=== PATIENT | female | born 1990 | race Caucasian/White ===

== ENCOUNTER 2017-09-05 09:45 | Emergency (ER) | payer BC, OTHER ==
[2017-09-05 09:56] VITALS: TEMP 98.1
[2017-09-05] MEDS ORDERED: KETOROLAC 30 MG/ML 1 ML VIAL IVP STA (10:14)
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
[2017-09-05 10:48] LABS: Appearance,Urine Cloudy (Clear); Bacteria,Urine Rare /hpf; Bilirubin,Urine Negative (Negative); Blood,Urine Negative (Negative); Color,Urine Colorless; Glucose,Urine (UA) Negative (Negative); Ketones,Urine Negative (Negative); Leukocyte Esterase,Urine Small (Negative); Mucus,Urine Rare /hpf; Nitrite,Urine Negative (Negative); Protein,Urine Negative (Negative); RBC,Urine 1 /hpf (0-5); Specific Gravity,Urine 1.003 (1.001-1.035); Squamous Epithelial Cell,Urine 6 /hpf (0-4); Urobilinogen,Urine <2.0 mg/dL (<2.0); WBC,Urine 4 /hpf (0-5)
[2017-09-05 10:52] LABS: Basophils % (A) 0 %; Eosinophils # (A) 0.3 k/uL (0-0.7); Eosinophils % (A) 4 %; HCT 43.3 % (34.0-46.0); HGB 14.8 gm/dL (11.4-16.0); Lymphocytes # (A) 1.6 k/uL (1.0-4.8); Lymphocytes % (A) 20 %; MCH 29.7 pg (25.0-35.0); MCHC 34.1 g/dL (31.0-37.0); Mean Platelet Volume 6.1; Monocytes # (A) 0.4 k/uL (0-1.0); Monocytes % (A) 5 %; Neutrophils # (A) 5.6 k/uL (1.3-7.7); Neutrophils % (A) 69 %; Platelet Count 320 k/uL (150-450); RBC 4.97 m/uL (3.80-5.40)
[2017-09-05 10:55] LABS: ALT 30 U/L (9-52); AST 26 U/L (14-36); Albumin 4.4 g/dL (3.5-5.0); Alkaline Phosphatase 66 U/L (38-126); Anion Gap 12 mmol/L; Blood Urea Nitrogen 13 mg/dL (7-17); Calcium 9.7 mg/dL (8.4-10.2); Carbon Dioxide 26 mmol/L (22-30); Chloride 104 mmol/L (98-107); Glucose 82 mg/dL (74-99); Potassium 4.5 mmol/L (3.5-5.1); Sodium 142 mmol/L (137-145); Total Bilirubin 0.3 mg/dL (0.2-1.3); Total Protein 7.1 g/dL (6.3-8.2)
--- NOTE | 2017-09-05 11:13 | US ---
EXAMINATION TYPE: US transvaginal DATE OF EXAM: 09/05/2017 COMPARISON: None CLINICAL HISTORY: L pelvic pain, eval for cyst/torsion. Left pelvic pain x 2 days, 0 TECHNIQUE: Transvaginal ER exam. Date of LMP: 08/19/2017 EXAM MEASUREMENTS: Uterus: 6.8 x 2.6 x 3.8 cm Endometrial Stripe: 0.6 cm Right Ovary: 2.4 x 1.5 x 1.6 cm Left Ovary: 4.8 x 4.2 x 3.6 cm 1. Uterus: anteverted, wnl 2. Endometrium: wnl for patient's LMP 3. Right Ovary: wnl 4. Left Ovary: 3.0 x 3.9 x 3.2cm complex cystic area with internal debris and septations Spectral, color and waveform doppler imaging shows good arterial and venous flow within the left ov mariano, good arterial flow within the right ovary, unable to obtain venous flow within the right ovary. 5. Bilateral Adnexa: wnl 6. Posterior cul-de-sac: wnl IMPRESSION: 1. Probable hemorrhagic cyst left ovary. Follow-up study in 6 weeks recommended.
--- NOTE | 2017-09-05 11:40 | XR ---
EXAMINATION TYPE: XR pelvis AP view DATE OF EXAM: 09/05/2017 CLINICAL HISTORY: pain TECHNIQUE: Single view the pelvis is submitted. FINDINGS: No evidence for fracture, dislocation or bony lesion. Joint spaces are well-preserved. S I joints appear symmetric. IMPRESSION: 1. No acute fracture or dislocation seen. ICD 10 NO FRACTURE, INITIAL EVALUATION
--- NOTE | 2017-09-05 11:40 | XR ---
EXAMINATION TYPE: XR lumbar spine 2 or 3V DATE OF EXAM: 09/05/2017 CLINICAL HISTORY: pain TECHNIQUE: Three views of the lumbar spine are submitted. COMPARISON: None. FINDINGS: There are 5 lumbar type vertebral bodies identified. The lumbar spine shows satisfactory alignment w ithout evidence of acute fracture or dislocation. Vertebral body heights are within normal limits. Disc spaces are within normal limits. The overlying soft tissue appears unremarkable. IMPRESSION: No acute fracture or dislocation is seen in the lumbar spine. ICD 10 NO FRACTURE, INITIAL EVALUATION
[2017-09-05 12:06] VITALS: BP 116/68; PULSE 67; RESP 18
== END 2017-09-05 12:09 | disposition home or self-care (01) ==
LOC: EC 09:45
DX: N83.209 Unspecified ovarian cyst, unspecified side (principal); R20.0 Anesthesia of skin; M54.5 Low back pain
CPT/HCPCS: 36415; 80053; 85025; 81001; 81025; 72100; 72170; 93975; 76830; 99284; 96374; J1885

== ENCOUNTER → 2018-05-06 | Outpatient (CLI) | payer BC ==
--- NOTE | 2018-05-06 14:15 | US ---
EXAMINATION TYPE: US pelvic complete DATE OF EXAM: 05/06/2018 COMPARISON: NONE CLINICAL HISTORY: R10.2 Pelvic and perineal pain. Left side discomort, hx of ovarian cysts TECHNIQUE: Transabdominal (TA). Transabdominal sonographic images of the pelvis were acquired. Date of LMP: 05/03/2018, G0 EXAM MEASUREMENTS: Uterus: 6.9 x 3.8 x 3.4 cm Endometrial Stripe: 0.4 cm Right Ovary: 2.3 x 1.9 x 1.7 cm Left Ovary: 2.6 x 1.7 x 1.7 cm 1. Uterus: Anteverted wnl 2. Endometrium: wnl 3. Right Ovary: wnl 4. Left Ovary: wnl 5. Bilateral Adnexa: wnl 6. Posterior cul-de-sac: no free fluid IMPRESSION: 1. Normal pelvic ultrasound.
== END ==
LOC: RADUSWWP 07:31
PROVIDERS: ATTEND Family Medicine
DX: R10.2 Pelvic and perineal pain (principal)
CPT/HCPCS: 76856

== ENCOUNTER → 2020-11-29 | Outpatient (CLI) | payer BC ==
--- NOTE | 2020-11-29 08:56 | CT ---
EXAMINATION TYPE: CT sinus wo con DATE OF EXAM: 11/29/2020 COMPARISON: None HISTORY: Chronic sinusitis CT DLP: [address] of the paranasal sinuses was performed in the axial and coronal planes. Bone and soft tissue settings are submitted. The paranasal sinuses demonstrate normal aeration and development. Mucosal thickening left maxillary sinus. Remaining paranasal sinuses are well-aerated. No air-fluid l evel seen. Partial obstruction left ostiomeatal unit. Right ostiomeatal unit is patent. The nasal septum is midline. No bony destructive changes are seen within the field of view. IMPRESSION: Chronic left maxillary sinusitis. Partial obstruction left ostiomeatal unit.
== END | disposition home or self-care (01) ==
LOC: RADCTMAIN 08:18 → MERGE 08:20
PROVIDERS: ATTEND Otolaryngology
DX: J32.0 Chronic maxillary sinusitis (principal)
CPT/HCPCS: 70486

== ENCOUNTER 2021-02-08 09:49 | Day surgery (SDC) | payer BC ==
[2021-02-06 10:35] VITALS: BMI 25.6
[~2021-02-08 09:49] MED LIST: DEXAMETHASONE SOD PHOSPHATE 4 MG/ML 1 ML VIAL IV ONE; DEXAMETHASONE SOD PHOSPHATE 4 MG/ML 1 ML VIAL IV PRN; FAMOTIDINE 20 MG/2 ML VIAL IV PRN; HYDROmorphone 0.5 MG/0.5 ML SYRINGE IVP PRN; LACTATED RINGERS 1,000 ML IV SCH; LIDOCAINE 1% (10MG/ML) FOR IV START INTRADERMA PRN; MIDAZOLAM 2 MG/2 ML VIAL IV PRN; ONDANSETRON 4 MG/2 ML VIAL IVP PRN
[2021-02-08] MEDS: OXYMETAZOLINE 0.05% NASL SPRAY 1 SPRAY BOTTLE EA NOSTRIL PRN ×5 (10:25→10:45)
[2021-02-08] MEDS: ONDANSETRON 4 MG/2 ML VIAL IVP ONE ×2 (10:33→13:25)
[2021-02-08] MEDS ORDERED: LACTATED RINGERS 1,000 ML IV ONE (10:33)
[2021-02-08] MEDS ORDERED: HYDROmorphone (PF) 1 MG/ML ONE (11:51)
[2021-02-08] MEDS ORDERED: MIDAZOLAM 2 MG/2 ML VIAL ONE (11:51)
[2021-02-08] MEDS ORDERED: SUCCINYLCHOLINE CHLORIDE 100 MG/5 ML SYR IV ONE (11:51)
[2021-02-08] MEDS ORDERED: PROPOFOL 10 MG/ML 20 ML VIAL IV ONE (11:51)
[2021-02-08] MEDS ORDERED: LIDOCAINE 1% INJ 10MG/ML (20 ML MDV) ONE (11:51)
[2021-02-08] MEDS ORDERED: fentaNYL (PF) 50 MCG/ML 2 ML AMP ONE (11:51)
[2021-02-08] MEDS ORDERED: LIDOCAINE 1%-EPI 1:100,000 20 ML VIAL SQ ONE (12:24)
[2021-02-08] MEDS ORDERED: BACITRACIN ZINC 500 UNIT/GM OINT 28.4 GM TUBE TOPICAL ONE (12:32)
--- NOTE | 2021-02-08 13:00 | P.OP ---
Date of Procedure: 02/08/21 Preoperative Diagnosis: Deviated nasal septum Inferior turbinate hypertrophy Chronic sinusitis Postoperative Diagnosis: Same Procedure(s) Performed: Septoplasty Outfracture and submucous resection inferior turbinates Bilateral endoscopic sinus surgery including bilateral maxillary antrostomy and right martin bullectomy Anesthesia: SEFERINO Surgeon: Rory Green Estimated Blood Loss (ml): 5 Pathology: other (Nasal septal bone and cartilage and sinus contents) Condition: stable Disposition: PACU Indications for Procedure: 31-year-old white female with a long history of chronic nasal airway obstruction, congestion, drainage and recurrent/chronic sinusitis with computed tomography scan evidence of chronic sinusitis Operative Findings: Nasal septum deviated to the right anteriorly to the left posteriorly with inferior turbinate hypertrophy bilateral. 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 The patient underwent induction of general anesthesia with oral endotracheal intubation without difficulty. The patient was prepped and draped in the usual aseptic fashion with the orbits in the operating field for monitoring to the case and the computed tomography scan was on the computer screen for review throughout the case. 1% lidocaine with 1 :100,000 epinephrine was infused submucosally into both sides of the nasal septum as well as the lateral nasal wall and anterior tips of the middle turbinates. While this was taking vasoconstrictive effect the inferior turbinates were infractured with [place] elevator and partial submucous resection of the inferior turbinates was performed with a portion of the s ubmucosal soft tissue and the inferior turbinate bone removed with Coblation device. The inferior turbinates were then outfractured with the [place] elevator. A left hemitransfixion incision was then made with the mucoperichondrial and mucoperiosteal flap on the left elevated. The bony cartilaginous junction was disarticulated and the mucoperiosteal flap on the right was elevated. Bony nasal septal deformities were removed with Brenda forceps and an inferior cartilaginous strip was removed leaving a full 1.5 cm caudal strut. Checking intranasally this corrected the nasoseptal deformities and the hemitransfixion incision was closed with a running 4-0 chromic suture. Full 0 endoscopic examination is performed bilaterally. Beginning on the left, the middle turbinate was medialized. The maxillary ostium was located with a ballpoint probe and an infundibulotomy was performed followed by uncinectomy. The maxillary antrostomy was enlarged at the expense of the anterior and posterior fontanelle taking care anteriorly not to injure the lacrimal bone. 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 [Nasopore nasal dressing was placed in the middle meatus bilaterally under direct visualization]. Bilateral Batista airway splints coated with bacitracin ointment were placed and sutured transseptally with a 4-0 nylon . The patient was suctioned in oral gastric fashion and was allowed to emerge from general anesthesia having tolerated procedure well and was extubated in the operating suite and transferred to the postoperative recovery area in satisfactory condition.
[2021-02-08 13:15] VITALS: TEMP 97.4
[2021-02-08 13:27] VITALS: RESP 16
[2021-02-08 14:30] VITALS: BP 138/93; PULSE 92
== END 2021-02-08 14:59 | disposition home or self-care (01) ==
LOC: OR 09:49
PROVIDERS: ATTEND Otolaryngology
DX: J34.2 Deviated nasal septum (principal); J32.9 Chronic sinusitis, unspecified; J34.3 Hypertrophy of nasal turbinates
CPT/HCPCS: 31240; 31256; 30520; J1100; J2405; J0690; J1170; 81025; 88300; 88305

== ENCOUNTER 2023-04-21 20:08 | Inpatient (IN) | payer BC ==
[2023-04-21] MEDS ORDERED: METHYLERGONOVINE 0.2 MG/ML 1 ML AMP IM PRN (22:13)
[2023-04-21] MEDS ORDERED: miSOPROStoL 200 MCG TAB PO PRN (22:13)
[2023-04-21] MEDS ORDERED: LIDOCAINE 0.5% (PF) 5 MG/ML (50 ML SDV) SQ PRN (22:13)
[2023-04-21] MEDS ORDERED: OXYTOCIN 10 UNIT/ML 1 ML VIAL IM PRN (22:13)
[2023-04-21] MEDS ORDERED: TRANEXAMIC 1,000 MG/100ML-NACL 1,000 MG in EMPTY BAG 1 BAG IV PRN (22:13)
[2023-04-21] MEDS ORDERED: TERBUTALINE 1 MG/ML VIAL SQ PRN (22:13)
[2023-04-21] MEDS ORDERED: CARBOPROST TROMETHAMINE 250 MCG/ML 1 ML AMP IM PRN (22:13)
[2023-04-21] MEDS ORDERED: OXYTOCIN 30 UNITS/500 ML NS 30 UNIT in SALINE 1 500ML.BAG IV SCH (22:15)
[2023-04-21] MEDS: LACTATED RINGERS 1,000 ML IV SCH ×2 (22:15→23:56)
[2023-04-21 22:30] LABS: Basophils # (A) 0.1 k/uL (0-0.2); Basophils % (A) 1 %; Eosinophils # (A) 0.3 k/uL (0-0.7); Eosinophils % (A) 3 %; HCT 38.3 % (34.0-46.0); HGB 12.6 gm/dL (11.4-16.0); Lymphocytes # (A) 2.3 k/uL (1.0-4.8); Lymphocytes % (A) 21 %; MCH 29.8 pg (25.0-35.0); MCV 90.5 fL (80.0-100.0); Mean Platelet Volume 9.9; Monocytes # (A) 0.6 k/uL (0-1.0); Monocytes % (A) 6 %; Neutrophils # (A) 7.3 k/uL (1.3-7.7); Neutrophils % (A) 68 %; Platelet Count 269 k/uL (150-450); RBC 4.23 m/uL (3.80-5.40); RDW 14.3 % (11.5-15.5); WBC 10.8 k/uL (3.8-10.6)
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
[2023-04-22] MEDS: LACTATED RINGERS 1,000 ML IV SCH (07:09)
[2023-04-22] MEDS ORDERED: diphenhydrAMINE 50 MG CAP PO PRN (11:01)
[2023-04-22] MEDS ORDERED: HYDROCORTISONE 2.5% RECTAL CREAM 30 GM TUBE RECTAL PRN (11:01)
[2023-04-22] MEDS ORDERED: diphenhydrAMINE 25 MG CAP PO PRN (11:01)
[2023-04-22] MEDS ORDERED: BENZOCAINE/MENTHOL SPRAY 1 GM/SPRAY AEROSOL TOPICAL PRN (11:01)
[2023-04-22] MEDS ORDERED: SIMETHICONE 80 MG CHEWABLE PO PRN (11:01)
[2023-04-22] MEDS ORDERED: LANOLIN CREAM 5 GM TUBE TOPICAL PRN (11:01)
[2023-04-22] MEDS ORDERED: ZOLPIDEM 5 MG TAB PO PRN (11:01)
[2023-04-22] MEDS ORDERED: diphenhydrAMINE 50 MG/ML 1 ML VIAL IVP PRN ×2 (11:01)
[2023-04-22] MEDS ORDERED: ACETAMINOPHEN TAB 325 MG TAB PO PRN (11:01)
[2023-04-22] MEDS ORDERED: SODIUM CHLORIDE 0.9% 250 ML BAG ONE (11:24)
[2023-04-22] MEDS ORDERED: fentaNYL (PF) 50 MCG/ML 5 ML AMP ONE (11:24)
[2023-04-22] MEDS ORDERED: ROPIVACAINE 5 MG/ML 30 ML VIAL ONE (11:24)
[2023-04-22] MEDS: IBUPROFEN 600 MG TAB PO SCH ×2 (12:51→23:07)
[2023-04-22] MEDS ORDERED: ONDANSETRON 4 MG/2 ML VIAL IVP STA (13:39)
[2023-04-23] MEDS: SENNOSIDES-DOCUSATE SODIUM 1 EACH TAB PO SCH ×2 (01:50→08:46)
[2023-04-23] MEDS: IBUPROFEN 600 MG TAB PO SCH ×2 (01:50→06:15)
[2023-04-23 05:55] LABS: Basophils % (A) 0 %; Eosinophils # (A) 0.3 k/uL (0-0.7); Eosinophils % (A) 3 %; HCT 32.1 % (34.0-46.0); HGB 10.7 gm/dL (11.4-16.0); Lymphocytes # (A) 2.4 k/uL (1.0-4.8); Lymphocytes % (A) 20 %; MCHC 33.4 g/dL (31.0-37.0); MCV 92.7 fL (80.0-100.0); Mean Platelet Volume 9.5; Monocytes # (A) 0.5 k/uL (0-1.0); Monocytes % (A) 4 %; Neutrophils # (A) 8.3 k/uL (1.3-7.7); Neutrophils % (A) 71 %; Platelet Count 234 k/uL (150-450); RBC 3.46 m/uL (3.80-5.40); RDW 14.1 % (11.5-15.5); WBC 11.8 k/uL (3.8-10.6)
--- NOTE | 2023-04-23 09:11 | P.DS ---
Providers Date of admission: 04/21/23 21:58 Expected date of discharge: 04/23/23 Attending physician: Jenny Ledesma Primary care physician: Stated None - Discharge Diagnosis(es) (1) Rh negative status during Current Visit: Yes Status: Acute (2) Spontaneous onset of labor Current Visit: Yes Status: Acute (3) Active labor at term Current Visit: No Status: Acute (4) Normal spontaneous vaginal delivery Current Visit: No Status: Acute Hospital Course: This is a 32-year-old G2 now P2002 presented to labor and delivery on 04/21 with complaints of regular painful contractions. Patient was deemed to be in active labor at 37-5/7 weeks and was admitted to labor and delivery. Patient became uncomfortable and did request epidural placement. Epidural was placed without difficulty by the anesthesia department. Contractions did space after epidural placement and patient was noted to be 6 cm, amniotomy was performed clear fluid was obtained. Contractions were every 5-6 minutes therefore Pitocin augmentation of labor was begun. Patient quickly progressed to complete began pushing and had a normal spontaneous vaginal delivery of a viable male infant at 1051, weight of 6 pounds 8.4 ounces. Patient did not sustain any vaginal lacerations during delivery. Patient's post course has been uneventful. On this day #1 she is independently and voiding without difficulty. She is tolerating a regular diet without nausea or vomiting. She states her pain is well-controlled. She denies concerns. She did struggle with depression with her first and has some questions regarding when necessary medication. Discussed daily medication given nature of depression. Patient states she will consider. We'll plan close follow-up in 2 weeks. Patient Condition at Discharge: Good Plan - Discharge Summary New Discharge Prescriptions: No Action Meclizine HCl [Bonine] 25 mg PO TID PRN PRN Reason: Vertigo Multivitamins, Thera [Multivitamin (formulary)] 1 tab PO DAILY Pnv No.95/Ferrous Fum/Folic AC [ Multivitamin Tablet] 1 each PO DAILY Escitalopram [Lexapro] 10 mg PO DAILY Discharge Medication List Meclizine HCl [Bonine] 25 mg PO TID PRN 09/05/17 [History] Multivitamins, Thera [Multivitamin (formulary)] 1 tab PO DAILY 09/05/17 [History] Pnv No.95/Ferrous Fum/Folic AC [ Multivitamin Tablet] 1 each PO DAILY 12/06/19 [History] Escitalopram [Lexapro] 10 mg PO DAILY 02/08/21 [History] Follow up Appointment(s)/Referral(s): Jenny Ledesma DO [Doctor of Osteopathic Medicine] - 2 Weeks Patient Instructions/Handouts: Vaginal Delivery (DC), Vaginal Delivery (GEN) Activity/Diet/Wound Care/Special Instructions: Tub baths or intercourse until 6 weeks . [id number] ibuprofen 600 mg or 3 tablets every 6 hours as needed for pain. Patient is to call the office and make a visit for 2 weeks to reevaluate symptoms and mood should she have any concerns prior to this appointment she is urged to call the office and be seen sooner. Discharge Disposition: HOME SELF-CARE
--- NOTE | 2023-04-23 09:11 | P.PROBDLV ---
Vaginal Delivery Note - . Vaginal Delivery Note: Findings, viable male infant delivered at 1051, weight of 6 pounds 8.4 ounces. This is a 32-year-old 3 para 1011 at 37-5/7 weeks that presented to labor and delivery yesterday evening with complaints of regular painful contractions. Patient was deemed to be in active labor therefore was admitted to labor and delivery. Patient did become uncomfortable and requested epidural placement. Patient did note spacing of contractions after epidural therefore Pitocin augmentation of labor was begun. Amniotomy was performed and clear fluid was obtained. Patient progressed to complete began pushing and had a normal spontaneous vaginal delivery of a viable male . Cord blood was then taken, placenta was delivered spontaneously intact with three-vessel cord being noted. On inspection the patient's vaginal vault no lacerations were appreciated, small labial laceration was appreciated no bleeding was noted therefore was not repaired. Uterus was noted be firm below the umbilicus. Estimated blood loss 100 mL. Patient infant tolerated delivery well and are resting comfortably. All counts were noted to be correct 2 at the delivery.
[2023-04-23 12:06] VITALS: BP 116/74; PULSE 76; RESP 16; TEMP 97.9
== END 2023-04-23 12:30 | disposition home or self-care (01) | DRG 807 ==
LOC: FBPOP 20:08 → 4FBP 21:58
PROVIDERS: ADMIT Obstetrics & Gynecology; ATTEND Obstetrics & Gynecology Obstetrics
PROC: 10E0XZZ Delivery of Products of Conception, External Approach (ICD-10-PCS; principal; 2023-04-22)
PROC: 10907ZC Drainage of Amniotic Fluid, Therapeutic from Products of Conception, Via Natural or Artificial Opening (ICD-10-PCS; principal; 2023-04-22)
DX: O36.0930 Maternal care for other rhesus isoimmunization, third trimester, not applicable or unspecified (principal); Z37.0 Single live birth; O70.0 First degree perineal laceration during delivery; O99.345 Other mental disorders complicating the puerperium; Z3A.37 37 weeks gestation of pregnancy; Z67.91 Unspecified blood type, Rh negative; Z79.899 Other long term (current) drug therapy
CPT/HCPCS: 59025; 85025; 86850; 86900; 86901; 99213

== ENCOUNTER → 2023-08-05 | Outpatient (CLI) | payer BC ==
[2023-08-05 17:36] LABS: BUN/Creat Ratio 18.83 Ratio (12.00-20.00); Basophils # (A) 0.04 X 10*3/uL (0.00-0.10); Basophils % (A) 0.5 %; Blood Urea Nitrogen 11.3 mg/dL (9.0-27.0); Chol/HDL Ratio 2.43 Ratio; Eosinophils % (A) 3.8 %; Glucose 76 mg/dL (70-110); HCT 39.4 % (37.2-46.3); HGB 12.7 g/dL (12.0-15.0); Lymphocytes # (A) 2.03 X 10*3/uL (0.90-5.00); Lymphocytes % (A) 25.6 %; MCH 29.3 pg (27.0-32.0); MCHC 32.2 g/dL (32.0-37.0); MCV 90.8 FL (80.0-97.0); Mean Platelet Volume 9.6 FL (9.5-12.2); Monocytes # (A) 0.43 X 10*3/uL (0.20-1.00); Monocytes % (A) 5.4 %; NRBC Per 100 WBC 0 X 10*3/uL (0.00-0.01); Neutrophils # (A) 5.09 X 10*3/uL (1.80-7.70); Neutrophils % (A) 64.3 %; Platelet Count 396 X 10*3/uL (140-440); RBC 4.34 X 10*6/uL (4.10-5.20); RDW 12.7 % (11.5-14.5); WBC 7.92 X 10*3/uL (4.50-10.00)
[2023-08-05 17:37] LABS: ALT 18 U/L (8-44); AST 15 U/L (13-35); Albumin 4.4 g/dL (3.8-4.9); Albumin/Globulin Ratio 1.83 Ratio (1.60-3.17); Alkaline Phosphatase 114 U/L (41-126); Bilirubin, Conjugated <0.20 mg/dL (0.20-0.40); Bilirubin,Unconjugated >0 mg/dL (0.20-1.00); Calcium 9.3 mg/dL (8.7-10.3); Carbon Dioxide 27.3 mmol/L (21.6-31.8); Chloride 104 mmol/L (96-109); Globulin 2.4 g/dL (1.6-3.3); LDL Cholesterol,Calculated 84.8 mg/dL (0.0-131.0); Potassium 4.5 mmol/L (3.5-5.5); Sodium 141 mmol/L (135-145); Total Bilirubin 0.2 mg/dL (0.3-1.2); Total Protein 6.8 g/dL (6.2-8.2)
[2023-08-05 18:12] LABS: Hepatitis B Surface AB- Quant 10.6 mIU/mL
[2023-08-05 18:47] LABS: Hepatitis B Surface Antigen Nonreactive (Nonreactive); Hepatitis C IgG Antibody Nonreactive (Nonreactive)
== END | disposition home or self-care (01) ==
LOC: LABWHC1 12:03
PROVIDERS: ATTEND Dermatology
DX: L40.0 Psoriasis vulgaris (principal); L40.4 Guttate psoriasis; L29.8 Other pruritus
CPT/HCPCS: 36415; 80053; 80061; 82248; 85025; 86704; 86706; 86803; 87340

== ENCOUNTER → 2023-08-12 | Outpatient (CLI) | payer BC | END | disposition home or self-care (01) | LOC: LABWHC1 14:08 | PROVIDERS: ATTEND Dermatology | DX: L40.0 Psoriasis vulgaris (principal); L40.4 Guttate psoriasis; L29.8 Other pruritus | CPT/HCPCS: 36415; 86480 ==

== ENCOUNTER → 2024-08-10 | Outpatient (CLI) | payer BC | END | disposition home or self-care (01) | LOC: LABWHC1 13:21 | PROVIDERS: ATTEND Dermatology | DX: L40.0 Psoriasis vulgaris (principal); L40.4 Guttate psoriasis | CPT/HCPCS: 36415; 86480 ==